=== PATIENT | female | born 1945 | race Caucasian/White ===

== ENCOUNTER → 2017-01-31 | Outpatient (CLI) | payer BC | LOC: MC.RAD 14:15 | DX: Z12.31 Encounter for screening mammogram for malignant neoplasm of breast (principal) ==

== ENCOUNTER 2023-03-14 12:09 | Emergency (ER) | payer MEDICARE ==
[~2023-03-14] VITALS: Ht 160 cm; Wt 59.1 kg
[~2023-03-14 12:09] MED LIST: CEFTIN500 MG PO
[2023-03-14 12:15] VITALS: TEMP 97.7
[2023-03-14 12:41] LABS: BASO # 0.1 K/mm3 (0.0-0.2); BASO % 1.1 % (0.0-2.0); EOS # 0.2 K/mm3 (0.0-0.7); EOS % 2.7 % (0.0-4.0); GRAN # 3.7 K/mm3 (1.4-6.5); GRAN % 64.6 % (42.2-75.2); HEMATOCRIT 42.5 % (37.0-47.0); HEMOGLOBIN 13.9 g/dl (12.5-16.0); LYMPH # 1.4 K/mm3 (1.2-3.4); LYMPH % 24.2 % (20.0-51.0); MEAN CELL VOLUME 96 fl (80.0-100.0); MEAN CORPUSCULAR HEMOGLOBIN 31 pg (27-31); MEAN CORPUSCULAR HGB CONC 33 g/dl (33.0-37.0); MEAN PLATELET VOLUME 9.8 fl (7.4-10.4); MONO # 0.4 K/mm3 (0.1-0.6); MONO % 6.9 % (1.7-9.3); PLATELET COUNT 197 K/mm3 (130-400); RED BLOOD COUNT 4.44 M/mm3 (4.10-5.30); REDCELL DISTRIBUTION WIDTH-CV 12.9 % (11.5-14.5)
[2023-03-14 12:56] LABS: ALBUMIN 3.4 gm/dL (3.4-4.8); BILIRUBIN,TOTAL 0.7 mg/dL (0.2-1.2); CALCIUM 9.7 mg/dL (8.4-10.2); CREATININE, serum 0.68 mg/dL (0.57-1.11); POTASSIUM 3.2 mmol/L (3.5-4.5); TOTAL PROTEIN 6.4 gm/dL (6.2-8.1)
[2023-03-14 14:46] LABS: COLLECTION METHOD CLEAN CATCH
[2023-03-14] MEDS ORDERED: CIPRO 500MG TA500 MG PO (15:01)
[2023-03-14 15:21] LABS: PH 6.5 (5.0-8.5); URINE APPEARANCE Cloudy (CLEAR/HAZY); URINE BLOOD 1+ (NEGATIVE); URINE COLOR Yellow (YELLOW); URINE GLUCOSE Negative (NEGATIVE); URINE KETONE Negative (NEGATIVE); URINE NITRATE Negative (NEGATIVE); URINE PROTEIN(semi-quant) Negative (NEGATIVE); URINE UROBILINOGEN 0.2 E.U/dL (0.2-1.0)
[2023-03-14 15:22] LABS: MUCOUS Present (NOT PRESENT); URINE BACTERIA Moderate /hpf (NONE SEEN); URINE CALCIUM OXALATE CRYSTAL Present (NOT PRESENT)
[2023-03-14 16:21] VITALS: BP 148/91
[2023-03-14 16:22] VITALS: PULSE 55
--- NOTE | 2023-03-14 16:29 | NUR ---
was contacted in regards to patient as she lives in independent living at [facility] and recently fractured her pubic bone. JAMES met with patient's daughter as patient was on the commode. JAMES was notified the doctor expressed patient should be non-ambulatory. Daughter would like patient to return home if possible. JAMES provided home health agency list from [employer]. Preference is [facility] as she lives in their independent living facility. JAMES contacted Madeline Golden at [facility] whom expressed with patient being non-ambulatory, she may require SNF. Madeline expressed they do not have any open rooms at this time for SNF or LTC. JAMES contacted Yuriy with home health whom expressed they could pay for 25/10 care private pay. JAMES contacted ER nurse regarding the above information and was informed patient is weight bearing as tolerated per ER doctor. JAMES notified Yuriy from [facility] whom expressed they could accept patient for home health and they could also supplement with private pay caregiver for additional services. JAMES met with patient and her daughter and provided the options of either SNF at another facility as [facility] is full or home health and they could also supplement with private pay caregiver services. Patient and daughter agreed she would prefer to stay in her home with home health services. [facility]CP is [facility] and [facility]. JAMES contacted patient's PCP social media coordinator to determine if they could send a home health order for PT/OT to [facility]. PCP social media coordinator expressed she would speak with Dr. Chiu about this order. JAMES notified [facility] she requested the order through the PCP and faxed over the referral to Yuriy at [facility]. Yuriy expressed she has put the patient on their schedule for tomorrow. Discharge Plan: Home with [facility]
== END 2023-03-14 16:12 | disposition home or self-care (01) ==
LOC: COL.ER 12:09
PROVIDERS: Emergency Medicine
DX: S32.502A Unspecified fracture of left pubis, initial encounter for closed fracture (principal); N21.0 Calculus in bladder; W18.30XA Fall on same level, unspecified, initial encounter; Y92.009 Unspecified place in unspecified non-institutional (private) residence as the place of occurrence of the external cause
CPT/HCPCS: J7030; Q9967